=== PATIENT | male | born 1980 | race Caucasian/White ===

== ENCOUNTER 2019-05-07 19:02 | Emergency (ER) | payer OTHER ==
[~2019-05-07] VITALS: Ht 175.3 cm; Wt 83.9 kg
--- NOTE | 2019-05-07 19:15 | NUR ---
Came in ambulatory with c/o abdominal pain. To room 2B. Seen and evaluated by Dr. Ang
--- NOTE | 2019-05-07 19:35 | NUR ---
Patient discharged to home in stable conditon. Written and verbal after care instructions given. Patient verbalizes understanding of instructions.
[2019-05-07 19:37] VITALS: BP 120/75
== END 2019-05-07 19:35 | disposition home or self-care (01) ==
LOC: ER 19:02
DX: R10.33 Periumbilical pain (principal); F17.200 Nicotine dependence, unspecified, uncomplicated
CPT/HCPCS: A4663